=== PATIENT | female | born 1945 | race Caucasian/White ===

== ENCOUNTER 2021-05-04 17:15 | Emergency (ER) | payer OTHER ==
[~2021-05-04] VITALS: Ht 154.9 cm; Wt 68.0 kg
--- NOTE | 2021-05-04 17:15 | NUR ---
PT BIB SON FROM HOME C/O R SIDED ABDOMINAL PAIN STARTED YESTERDAY. 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 WILL CONTINUE TO MONITOR.
--- NOTE | 2021-05-04 17:38 | NUR ---
SEEN AND EXAMINED BY .
[2021-05-04 18:01] LABS: BASOPHILS # (AUTO) 0.1 K/uL (0.0-0.2); BASOPHILS % (AUTO) 0.3 % (0.0-2.0); EOSINOPHILS % (AUTO) 0.1 % (0.0-6.0); HEMATOCRIT 40 % (33-45); HEMOGLOBIN 12.7 g/dL (11.5-14.8); LYMPHOCYTES # (AUTO) 0.9 K/uL (0.8-4.8); LYMPHOCYTES % (AUTO) 4.4 % (20.0-44.0); MEAN CORPUSCULAR HGB CONC 32 g/dl (31.0-36.0); MEAN CORPUSCULAR VOLUME 86 fL (82-100); MONOCYTES # (AUTO) 1.2 K/uL (0.1-1.30); MONOCYTES % (AUTO) 5.9 % (2.0-12.0); NEUTROPHILS # (AUTO) 17.5 K/uL (1.8-8.9); NEUTROPHILS % (AUTO) 89.3 % (43.0-81.0); PLATELET COUNT (AUTO) 392 K/uL (150-450); RED BLOOD CELL COUNT(AUTO) 4.64 MIL/uL (4.0-5.2); WHITE BLOOD COUNT (AUTO) 19.6 K/uL (4.3-11.0)
[2021-05-04 18:05] LABS: CALCIUM, SERUM 8.5 mg/dL (8.5-10.1); CARBON DIOXIDE 25 mmol/L (21-32); GLUCOSE 125 mg/dL (74-106); UREA NITROGEN, BLOOD 20 mg/dL (7-18)
[2021-05-04 18:11] LABS: ALANINE AMINOTRANSFERASE 24 U/L (12-78); ALKALINE PHOSPHATASE 157 U/L (46-116); ASPARTATE AMINOTRANSFERASE 19 U/L (15-37); BILIRUBIN,DIRECT 0.1 mg/dL (0.0-0.2); BILIRUBIN,TOTAL 0.4 mg/dL (0.2-1.0); TOTAL PROTEIN, SERUM 6.4 g/dL (6.4-8.2)
[2021-05-04] MEDS ORDERED: BENA20TA9 PO (18:25)
[2021-05-04] MEDS ORDERED: ATEN100T PO (18:25)
[2021-05-04] MEDS ORDERED: HYDROMORPHONE 1 MG/1 ML DISP.SYRIN ONE ×3 (18:28→22:55)
[2021-05-04] MEDS: HYDROMORPHONE 1 MG/1 ML DISP.SYRIN IV ONE ×3 (18:31→22:54)
[2021-05-04] MEDS ORDERED: IOHEXOL-300 100 ML VIAL IV ONE (18:31)
[2021-05-04] MEDS ORDERED: IV NS 0.9% 250 ML IV ONE (18:32)
[2021-05-04] MEDS: PIPERACILLIN /TAZOBACTAM 3.375 G in IV D5W 50 ML IV ONE (19:05)
[2021-05-04] MEDS ORDERED: PIPERACILLIN /TAZOBACTAM 3.375 G VIAL IV ONE (19:23)
--- NOTE | 2021-05-04 19:30 | NUR ---
COVID SWAB SENT TO LAB
--- NOTE | 2021-05-04 19:38 | NUR ---
CALLED [facility] FOR CT AND US READ
[2021-05-04 20:07] LABS: LIPASE 4668 U/L (73-393)
--- NOTE | 2021-05-04 20:31 | NUR ---
VERBAL ORDER 0.5MG DILAUDID
--- NOTE | 2021-05-04 20:35 | NUR ---
URINE SENT TO LAB
--- NOTE | 2021-05-04 21:04 | NUR ---
[facility] PAGED
[2021-05-04 21:13] LABS: BILIRUBIN,URINE NEGATIVE (NEGATIVE); COLOR,URINE YELLOW (YELLOW); LEUKOCYTE ESTERASE ,URINE NEGATIVE (NEGATIVE); NITRITE, URINE POSITIVE (NEGATIVE); PROTEIN,URINE NEGATIVE (NEGATIVE); UGLUCOSE NEGATIVE (NEGATIVE); UROBILINOGEN,URINE 0.2 EU/dL (0.2)
--- NOTE | 2021-05-04 21:37 | NUR ---
SPOKE TO RICHARD VUONG AND FAXED NEGATIVE COVID RESULT. [phone]. AWAITING MD TO MD PEER CALL
[2021-05-04 21:38] LABS: BACTERIA,URINE 1+ /HPF (None Seen); RBC,URINE 0-2 /HPF (0-2); WBC,URINE 0-2 /HPF (0-3)
--- NOTE | 2021-05-04 21:49 | NUR ---
DR PARKER SPEAKING TO DR GAYLE
--- NOTE | 2021-05-04 22:54 | NUR ---
VERBAL ORDER OF 0.5MG IV DILAUDID
[2021-05-05 00:08] LABS: SODIUM SERUM 135 mmol/L (136-145)
[2021-05-05 00:09] LABS: CHLORIDE 101 mmol/L (98-107); POTASSIUM 4.3 mmol/L (3.5-5.1)
--- NOTE | 2021-05-05 00:13 | NUR ---
PT PLACED ON 2L O2 FOR COMFORT. SATURATING 98%
--- NOTE | 2021-05-05 00:29 | NUR ---
TRANSFER INFO, PER THAIS: [facility] [address] [place] [id number] MD [place] [facility]SI [employer] OVER[employer] ETA [phone]
--- NOTE | 2021-05-05 00:37 | NUR ---
GAVE REPORT TO VIANNEY DESAI FOR PAMELA
[2021-05-05 01:15] VITALS: BP 138/70
[2021-05-05] MEDS: ONDANSETRON HCL/PF 4 MG/2 ML VIAL IV ONE (02:16)
--- NOTE | 2021-05-05 02:16 | NUR ---
GAVE REPORT TO EMS
[2021-05-05] MEDS ORDERED: ONDANSETRON HCL/PF 4 MG/2 ML VIAL ONE (02:26)
== END 2021-05-05 02:16 | disposition short-term general hospital (02) ==
LOC: ER 17:20
DX: K85.90 Acute pancreatitis without necrosis or infection, unspecified (principal); K76.0 Fatty (change of) liver, not elsewhere classified; Z20.822 Contact with and (suspected) exposure to COVID-19; N28.89 Other specified disorders of kidney and ureter; K58.0 Irritable bowel syndrome with diarrhea; I10 Essential (primary) hypertension; Z88.6 Allergy status to analgesic agent; Z88.2 Allergy status to sulfonamides; Z90.710 Acquired absence of both cervix and uterus; R94.31 Abnormal electrocardiogram [ECG] [EKG]
CPT/HCPCS: 36415; 51702; 74177; 76705; 80048; 80076; 81001; 83690; 84484; 85025; 87081; 87086; 87426; 93005; 96365; 96375 ×2; 96376; 99285; C9803; J1170 ×3; J2405; J2543; J7060; Q9967; J7050